=== PATIENT | male | born 1965 | race Caucasian/White ===

== ENCOUNTER 2017-02-28 16:02 | Emergency (ER) | payer OTHER ==
--- NOTE | 2017-02-28 18:13 | Emergency Department Report ---
ED GI Bleed HPI - General Chief complaint: Rectal Pain Stated complaint: BLOODY DARK STOOL X 2 DAYS Time Seen by Provider: 02/28/17 17:52 Source: patient Mode of arrival: Ambulatory Limitations: No Limitations - History of Present Illness Initial comments: 51-year-old male past medical history MD complaint: blood on toilet paper, melena, blood streaked stool - Related Data Previous Rx's Medication Instructions Recorded Last Taken Type PE/Shk Lvr/Mo/Pet,Wh [Preparation 28 gm UT BID #1 tube 02/28/17 Unknown Rx H] Allergies Allergy/AdvReac Type Severity Reaction Status Date / Time No Known Allergies Allergy Unverified 02/28/17 16:16 ED Review of Systems ROS: Stated complaint: BLOODY DARK STOOL X 2 DAYS Other details as noted in HPI ED Past Medical Hx - Past Medical History Previous Medical History?: No - Surgical History Past Surgical History?: No - Social History Smoking Status: Never Smoker Substance Use Type: None - Medications Home Medications: Home Medications Medication Instructions Recorded Confirmed Last Taken Type PE/Shk Lvr/Mo/Pet,Wh [Preparation 28 gm UT BID #1 tube 02/28/17 Unknown Rx H] ED Physical Exam - General Limitations: No Limitations ED Course Vital Signs 02/28/17 16:12 Temperature 98 F Pulse Rate 81 Respiratory 16 Rate Blood Pressure 156/94 O2 Sat by Pulse 100 Oximetry ED Medical Decision Making - Lab Data Result diagrams: 02/28/17 18:34 02/28/17 18:34 Critical care attestation.: If time is entered above; I have spent that time in minutes in the direct care of this critically ill patient, excluding procedure time. ED Disposition Clinical Impression: Hemorrhoids, Rectal bleeding Disposition: DC-01 TO HOME OR SELFCARE Condition: Stable Instructions: Hemorrhoids (ED), Rectal Bleeding (ED) Prescriptions: PE/Shk Lvr/Mo/Pet,Wh [Preparation H] 28 gm UT BID #1 tube Referrals: [facility] [Provider Group] - 3-5 Days ISABEL GIFFORD MD [Staff Physician] - 3-5 Days Forms: Work/School Release Form(ED)
[2017-02-28 19:05] LABS: Basophils % (Auto) 0.5 % (0.0-1.8); Eosinophils % (Auto) 1.7 % (0.0-4.3); Hematocrit 48.6 % (35.5-45.6); Hemoglobin 16.5 gm/dl (11.8-15.2); Mean Corpuscular HGB Conc 34 % (32-34); Mean Corpuscular Hemoglobin 32 pg (28-32); Mean Corpuscular Volume 95 fl (84-94); Platelet Count 234 K/mm3 (140-440); Red Blood Count 5.13 M/mm3 (3.65-5.03); Red Cell Distribution Width 13.5 % (13.2-15.2); White Blood Count 7.1 K/mm3 (4.5-11.0)
[2017-02-28 19:18] LABS: INR 0.86 (0.87-1.13)
[2017-02-28 19:19] LABS: Alanine Aminotransferase 17 units/L (7-56); Albumin 3.9 g/dL (3.9-5); Albumin/Globulin Ratio 1.4 %; Alkaline Phosphatase 52 units/L (35-129); Anion Gap 14 mmol/L; BUN/Creatinine Ratio 23.33; Blood Urea Nitrogen 14 mg/dL (9-20); Calcium 8.7 mg/dL (8.4-10.2); Carbon Dioxide 28 mmol/L (22-30); Chloride 99.3 mmol/L (98-107); Glucose 140 mg/dL (75-100); Partial Thromboplastin Time 28.8 Sec. (24.2-36.6); Potassium 4.5 mmol/L (3.6-5.0); Sodium 137 mmol/L (137-145); Total Protein 6.6 g/dL (6.3-8.2)
[2017-02-28 19:35] LABS: Bilirubin,Direct < 0.2 mg/dL (0-0.2); Bilirubin,Indirect 0.1 mg/dL
[2017-02-28 20:01] VITALS: BP 148/97
== END 2017-02-28 20:02 | disposition home or self-care (01) ==
LOC: ED 16:02
DX: K64.9 Unspecified hemorrhoids (principal); K62.5 Hemorrhage of anus and rectum
CPT/HCPCS: 36415; 80048; 80074; 82270; 82271; 85025; 85610; 85730; 86850; 86900; 86901; 99283